=== PATIENT | male | born 1980 | race Caucasian/White ===

== ENCOUNTER → 2019-06-15 11:04 | Outpatient (CLI) | payer OTHER, SELFPAY ==
--- NOTE | 2019-06-15 | DI.RAD.S_ITS ---
PROCEDURE: XR RIBS RT MIN 3V W CXR 1V INDICATIONS: rib pain TECHNIQUE: 2 views of the right ribs were acquired, along with a single view chest. COMPARISON: None. FINDINGS: Surgical changes and devices: None. Bones and chest wall: Linear lucency and cortical irregularity involving the lateral right ninth rib Lungs and pleura: No pleural effusions or pneumothorax. Lungs appear clear. Mediastinum: Mediastinal contours appear normal. Heart size is normal. IMPRESSION: Suspect lateral right ninth rib fracture. No pneumothorax Dictated by: Alvaro Mauricio M.D. on 06/15/2019 at 16:33 Approved by: Alvaro Mauricio M.D. on 06/15/2019 at 16:37
== END ==
PROVIDERS: PCP Family Medicine; Visit Provider Student in an Organized Health Care Education/Training Program
DX: R07.81 Pleurodynia (principal)
CPT/HCPCS: 71101

== ENCOUNTER → 2019-08-10 13:10 | Outpatient (ROUT) | payer OTHER, SELFPAY ==
[2019-08-10 13:28] LABS: Semen Sperm Prescence Post-Vas Absent (ABSENT)
== END ==
PROVIDERS: PCP Family Medicine; Visit Provider Student in an Organized Health Care Education/Training Program
DX: Z30.2 Encounter for sterilization (principal)
CPT/HCPCS: 89321

== ENCOUNTER → 2019-12-14 12:23 | Outpatient (CLI) | payer OTHER, SELFPAY ==
--- NOTE | 2019-12-14 | DI.MRI.S_ITS ---
PROCEDURE: MR SHOULDER LT WO CON INDICATIONS: Unspecified disorder of synovium and tendon, left TECHNIQUE: Noncontrast oblique coronal T2 fast spin echo with fat saturation, oblique sagittal T1 spin echo and T2 fast spin echo with fat saturation, axial T1 spin echo and T2 fast spin echo with fat saturation through the shoulder. COMPARISON: None. FINDINGS: Image quality: Excellent. Rotator cuff: Supraspinatus and infraspinatus mild tendinopathy. There is low-grade bursal surface fraying of the supraspinatus and infraspinatus tendons. Teres minor and subscapularis tendons appear intact. No atrophy of the rotator cuff muscles Bones and bursae: No bone marrow contusions or fractures. Minimal acromioclavicular joint degeneration. Acromion demonstrates conventional anatomy, without an os acromiale. Mild-moderate subacromial-subdeltoid bursitis. Capsule and soft tissues: Labrum: No discrete tear identified. Incidental sub-labral foramen. Long head of the biceps tendon intact. The rotator interval appears normal, without fibrosis. Coracohumeral ligament intact. IMPRESSION: Supraspinatus and infraspinatus tendinopathy with low-grade bursal surface fraying. Mild-moderate subacromial-subdeltoid bursitis Dictated by: Alvaro Mauricio M.D. on 12/14/2019 at 13:43 Approved by: Alvaro Mauricio M.D. on 12/14/2019 at 13:49
== END ==
PROVIDERS: PCP Family Medicine; Referring Provider Orthopaedic Surgery; Visit Provider Orthopaedic Surgery
DX: M67.912 Unspecified disorder of synovium and tendon, left shoulder (principal); M75.52 Bursitis of left shoulder
CPT/HCPCS: 73221

== ENCOUNTER → 2020-10-30 13:06 | Outpatient (CLI) | payer OTHER, SELFPAY ==
--- NOTE | 2020-10-30 13:08 | DI.CT.S_ITS ---
PROCEDURE: CT CHEST WO CON INDICATIONS: RIGHT RIB FRACTURE TECHNIQUE: Noncontrast 5 mm thick sections acquired from the pulmonary apices to the posterior costophrenic angles. 1 mm lung window, 5 mm thick coronal and sagittal and 7 mm axial MIP reformats were then acquired. For radiation dose reduction, the following was used: automated exposure control, adjustment of mA and/or kV according to patient size. COMPARISON: [facility], CR, XR RIBS RT MIN 3V W CXR 1V, 06/15/2019, 11:13. FINDINGS: Image quality: Excellent. Lungs and pleura: No acute air space opacities. No pleural effusions or pneumothorax. Central and peripheral airways are patent and normal in caliber. Mediastinum: Heart size is normal. No pericardial effusion. No mediastinal adenopathy by size criteria. Thoracic aorta and central pulmonary arteries are normal in size. Esophagus is normal in caliber. No hiatal hernia. Bones and chest wall: Area of sclerosis with subtle internal linear lucency is noted in right lateral 10th rib best seen on sagittal series image 15 suggestive of a subacute nondisplaced fracture in this area. No other rib fracture or suspicious bony lesion is seen. No vertebral body compression fractures. No axillary or supraclavicular adenopathy by size criteria. Thyroid gland is within normal limits. Abdomen: Visualized upper abdominal solid organs and bowel loops appear normal in the absence of contrast. IMPRESSION: 1. Suggestion of a subacute appearing nondisplaced right lateral 10th rib fracture. No other rib fracture or suspicious bony lesion is seen. 2. Lungs are clear. 3. No mediastinal or hilar lymphadenopathy. Dictated by: Donavon Mitchell M.D. on 10/30/2020 at 14:38 Approved by: Donavon Mitchell M.D. on 10/30/2020 at 14:56
== END ==
PROVIDERS: PCP Family Medicine; Referring Provider Family Medicine; Visit Provider Family Medicine
DX: S22.31XG Fracture of one rib, right side, subsequent encounter for fracture with delayed healing (principal)
CPT/HCPCS: 71250

== ENCOUNTER → 2023-01-01 18:12 | Outpatient (CLI) | payer OTHER, SELFPAY ==
--- NOTE | 2023-01-01 | DI.RAD.S_ITS ---
PROCEDURE: XR CHEST 2V INDICATIONS: CHEST PA L TECHNIQUE: 2 views of the chest were acquired. COMPARISON: None. FINDINGS: Surgical changes and devices: None. Lungs and pleura: Lungs are clear. No pleural effusions or pneumothorax. Mediastinum: Mediastinal contours are normal. Heart size is normal. Bones and chest wall: No suspicious bony abnormalities. Soft tissues appear unremarkable. IMPRESSION: No evidence for active disease in the chest. Dictated by: Vince Castro M.D. on 01/02/2023 at 8:21 Approved by: Vince Castro M.D. on 01/02/2023 at 8:22
== END ==
PROVIDERS: PCP Family Medicine; Referring Provider Family Medicine; Visit Provider Family Medicine
DX: R06.02 Shortness of breath (principal)
CPT/HCPCS: 71046

== ENCOUNTER → 2023-01-13 12:27 | Outpatient (CLI) | payer OTHER, SELFPAY ==
--- NOTE | 2023-01-13 | DI.US.S_ITS ---
PROCEDURE: US ABDOMEN LIMITED INDICATIONS: Splenomegaly, not elsewhere classified TECHNIQUE: Real-time focused scanning was performed of the abdomen, with image documentation. COMPARISON: None. FINDINGS: The spleen measures up to 17.1 cm in length, with a calculated volume of 461 cc. No focal splenic lesion identified sonographically. IMPRESSION: Nonspecific splenomegaly. Dictated by: Ash Mcneil M.D. on 01/13/2023 at 13:37 Approved by: Ash Mcneil M.D. on 01/13/2023 at 13:39
== END ==
PROVIDERS: PCP Family Medicine; Referring Provider Family Medicine; Visit Provider Family Medicine
DX: R16.1 Splenomegaly, not elsewhere classified (principal)
CPT/HCPCS: 76705

== ENCOUNTER → 2023-04-15 08:50 | Outpatient (CLI) | payer OTHER, SELFPAY ==
--- NOTE | 2023-04-15 | DI.US.S_ITS ---
PROCEDURE: US ABDOMEN COMPLETE INDICATIONS: Splenomegaly, not elsewhere classified TECHNIQUE: Real-time scanning was performed of the left upper quadrant, with image documentation. COMPARISON: [facility], , US ABDOMEN LIMITED, 01/13/2023, 12:40. FINDINGS: Spleen: Spleen is borderline enlarged and measures 12.2 x 5 cm in size Miscellaneous: No free abdominal fluid. IMPRESSION: Borderline splenomegaly now measures 12.2 x 5 cm in size compared to 17.1 cm in size on previous study. Dictated by: Donavon Mitchell M.D. on 04/15/2023 at 10:59 Approved by: Donavon Mitchell M.D. on 04/15/2023 at 11:00
== END ==
PROVIDERS: PCP Family Medicine; Referring Provider Family Medicine; Visit Provider Family Medicine
DX: B27.90 Infectious mononucleosis, unspecified without complication (principal); R16.1 Splenomegaly, not elsewhere classified
CPT/HCPCS: 76700

== ENCOUNTER → 2023-06-21 11:48 | Outpatient (CLI) | payer OTHER, SELFPAY ==
--- NOTE | 2023-06-21 11:50 | DI.RAD.S_ITS ---
PROCEDURE: XR LUMBAR SPINE MIN 4V INDICATIONS: Lumbar pain TECHNIQUE: 5 views of the lumbar spine were acquired, including bilateral oblique views. COMPARISON: None. FINDINGS: Bones: 5 nonrib-bearing vertebrae are present. There is normal bony alignment. No vertebral body compression fractures. No suspicious bony lesions. The disc heights are well preserved. Soft tissues: Overlying bowel gas pattern is normal. No suspicious soft tissue calcifications. Oblique images: No pars defects. IMPRESSION: Plain film study within normal limits. If it would be helpful for clinical management decision making, please consider a dedicated, scheduled lumbar spine MRI for further evaluation (assuming that there is no contraindication). Dictated by: Geraldo Sandy M.D. on 06/21/2023 at 15:13 Approved by: Geraldo Sandy M.D. on 06/21/2023 at 15:13
== END ==
PROVIDERS: PCP Family Medicine; Referring Provider Nurse Practitioner Family; Visit Provider Nurse Practitioner Family
DX: M54.50 Low back pain, unspecified (principal)
CPT/HCPCS: 72110

== ENCOUNTER → 2023-08-06 11:42 | Outpatient (CLI) | payer OTHER, SELFPAY ==
--- NOTE | 2023-08-06 11:58 | DI.MRI.S_ITS ---
PROCEDURE: MR LUMBAR SPINE WO CON INDICATIONS: Radiculopathy, lumbar region TECHNIQUE: Noncontrast sagittal T1 spin echo and T2 fast echo, sagittal STIR, and T2 fast spin echo through the lumbar spine. In cases with scoliosis, additional coronal T2 fast spin echo may be performed. COMPARISON: None. FINDINGS: Image quality: Excellent. Alignment and Curvature: There is normal bony alignment. Bone Marrow: Marrow is of normal overall signal. No acute vertebral body compression fractures. Spinal Cord: Conus medullaris terminates at the L1 level. Visualized cord demonstrates normal signal and size. Paraspinous Soft Tissues: Prominent left para-aortic lymph nodes are incompletely evaluated. T12-L1: Normal appearance. L1-L2: Normal appearance. L2-L3: Disc desiccation. Small posterior disc bulge. Small superimposed superiorly directed disc extrusion. No central canal or neural foraminal stenosis. L3-L4: Mild facet arthropathy. No central canal or neural foraminal stenosis. L4-L5: Facet arthropathy. No central canal or neural foraminal stenosis. L5-S1: Facet arthropathy. No central canal or neural foraminal stenosis. IMPRESSION: 1. Mild degenerative changes of the lumbar spine as described above. No significant central canal or neural foraminal stenosis. 2. Prominent left para-aortic lymph nodes are incompletely evaluated. Recommend CT abdomen pelvis for further evaluation. Dictated by: Rupert Merida M.D. on 08/06/2023 at 12:54 Approved by: Rupert Merida M.D. on 08/06/2023 at 12:58
== END ==
PROVIDERS: PCP Family Medicine; Referring Provider Family Medicine; Visit Provider Family Medicine
DX: M47.26 Other spondylosis with radiculopathy, lumbar region; M47.27 Other spondylosis with radiculopathy, lumbosacral region
CPT/HCPCS: 72148

== ENCOUNTER → 2023-09-17 07:33 | Outpatient (CLI) | payer OTHER, SELFPAY ==
--- NOTE | 2023-09-17 | DI.CT.S_ITS ---
PROCEDURE: CT ABDOMEN PELVIS W CON INDICATIONS: Localized enlarged lymph nodes TECHNIQUE: After the administration of oral and IV contrast, axial sections were acquired from the lung bases to the pubic symphysis. Coronal and sagittal reformats were performed. For radiation dose reduction, the following was used: automated exposure control, adjustment of mA and/or kV according to patient size. COMPARISON: [facility], MR, MR LUMBAR SPINE WO CON, 08/06/2023, 11:53. FINDINGS: Image quality: Excellent. Lung bases: Unremarkable. Heart: No significant findings. ABDOMEN: Liver: A small hypodensity in the left lobe of the liver which has the appearance of a benign cyst. Gallbladder: No radiopaque gallstones or wall thickening. Biliary ducts: No biliary dilation. Pancreas: No ductal dilation. Spleen: Size is within normal limits. Adrenal Glands: No adrenal nodules. Kidneys and Ureters: No hydronephrosis. No solid mass. No complex renal cystic lesion which requires follow up. Stomach and Bowel: Normal colonic caliber, without significant wall thickening. Normal appendix. Peritoneum: No abnormal intraperitoneal fluid. No free air. Ventral Wall: Tiny fat containing umbilical hernia. Abdominal Nodes: Retroperitoneal lymph nodes are felt to be within normal limits. There is a preserved fatty hilum and no pathologically enlarged lymph nodes. Vessels: Aorta and inferior vena cava are normal in size. PELVIS: Pelvic Organs: Unremarkable. Bladder: Unremarkable. Pelvic Nodes: No enlarged lymph nodes. Miscellaneous: No inguinal hernias are seen. Vasectomy clips. Bones: No suspicious osseous lesion. IMPRESSION: 1. Retroperitoneal lymph nodes are within normal limits. 2. No acute abnormality. No free fluid. Dictated by: Victorino Huynh M.D. on 09/17/2023 at 9:03 Approved by: Victorino Huynh M.D. on 09/17/2023 at 9:14
== END ==
PROVIDERS: PCP Family Medicine; Referring Provider Family Medicine; Visit Provider Family Medicine
DX: R59.0 Localized enlarged lymph nodes (principal)
CPT/HCPCS: 74177; Q9967

== ENCOUNTER 2023-10-30 13:10 | Day surgery (SDC) | payer OTHER, SELFPAY ==
--- NOTE | 2023-10-30 | PATH_ITS ---
[facility] Accession Number: [id number] No. of containers..02 Tissue . 01 Material submitted: . PART A: cecum - CECAL POLYP PART B: sigmoid colon - SIGMOID POLYP X 2 . 01 Diagnosis: A. Cecal Polyp, Biopsy: Sessile serrated adenoma. . B. Sigmoid Colon Polyps, Biopsy: Tubular adenoma. Hyperplastic polyp. MRV 11/03/2023 1454 Local . 01 Electronically signed: . Bhakti Biggs MD, Pathologist NPI- [id number] . 01 Gross description: . Part A: CECAL POLYP: Received in formalin are 2 fragment(s) of palm, soft tissue measuring 0.3 x 0.3 x 0.3 cm to 1.2 x 0.6 x 0.4 cm submitted entirely in 1 cassette(s) Part B: SIGMOID POLYP X 2: Received in formalin are 2 fragment(s) of palm, soft tissue measuring 0.1 x 0.1 x 0.1 cm to 0.5 x 0.4 x 0.4 cm submitted entirely in 1 cassette(s) /BETY 10/31/2023 2006 Local . 01 Pathologist provided ICD-10: D12.0, D12.5 . 01 CPT . 386358, [id number] Specimen Comment: A courtesy copy of this report has been sent to [phone] Performed at: 01 [facility] [address] [place] [address] Suite [facility], [place], [place] [id number] MD Tonio Aguirre MD Phone: [phone]
[2023-10-30 14:31] VITALS: BP 108/83; PULSE 85; RESP 16; TEMP 36.3; O2SAT 98
--- NOTE | 2023-10-30 14:46 | PM.HP.1 ---
History of Present Illness History of Present Illness Date Patient Seen: 10/30/23 Time Patient Seen: 14:46 Chief complaint: SDC Narrative: Vince is a 43-year-old man who is here for a screening colonoscopy. He has never had 1 before. No family history of colon cancer. No other major health problems. [facility] Social History Smoking Status: Never smoker alcohol intake: current Meds Home Medications and Allergies Home Medications Medication Instructions Recorded Confirmed Type cyclobenzaprine 5 mg tablet 5 mg PO TID PRN muscle spasm #20 06/21/23 06/21/23 Rx tabs sodium,potassium,mag sulfates 17.5 See Rx Instructions PO .COMPLEX 09/04/23 Rx gram-3.13 gram-1.6 gram oral soln #354 mL (Suprep Bowel Prep Kit) Allergies Allergy/AdvReac Type Severity Reaction Status Date / Time No Known Drug Allergies Allergy Unverified 06/21/23 11:20 Exam Vital Signs (past 8 hours): - 10/30/23 14:31 Temperature 97.4 F L Pulse Rate 85 Respiratory Rate 16 Blood Pressure 108/83 Pulse Oximetry 98 Oxygen Delivery Method Room Air Oxygen Delivery Method Room Air Const General: healthy appearing Assessment & Plan Assessment and plan (1) Colon cancer screening: Status: Acute Plan We reviewed the risks and benefits of colonoscopy for colon cancer screening and he would like to proceed.
[2023-10-30] MEDS: LACTATED RINGERS 1,000 ML 84 ML IV (14:47)
[2023-10-30 15:25] VITALS: BP 85/58; PULSE 77; RESP 11; TEMP 36.4; O2SAT 95
[2023-10-30 15:29] VITALS: BP 93/62; PULSE 76; RESP 11; O2SAT 98
--- NOTE | 2023-10-30 15:30 | PM.OP.COLON ---
Operative Date/Time/Diagnoses Date of procedure: 10/30/23 Time of procedure: 15:30 Pre-op diagnosis: Colon cancer screening Post-op diagnosis: same Procedure & Clinicians Study performed: Colonoscopy Same procedure as scheduled: Yes Surgeon: Jose Carlos Haines Procedure Notes Procedure in detail: Surgeon: Jose Carlos Haines MD Anesthesia: Tevin Dao MD Procedure: The patient was brought to the endoscopy suite, placed in left lateral decubitus position. The patient was connected to monitoring devices. A time-out was performed. Sedation was administered. Once the patient was adequately sedated, a digital rectal exam was performed and was normal. The scope was then inserted and advanced to the cecum where the appendiceal orifice was identified and photographed. The scope was then slowly withdrawn over greater than 6 minutes. The mucosa was thoroughly inspected. There was an 8 mm polyp in the cecum near the appendiceal orifice and removed with a cold snare. There were 2 diminutive polyps in the distal sigmoid removed with cold snare and sent together as sigmoid polyps. The scope was retroflexed in the rectum. Internal hemorrhoids were noted. The scope was straightened and removed. The patient was awakened and brought to recovery. Scope withdrawal time: 12 minutes Sedation time: 18 minutes EBL: 2 mL Findings: 8 mm polyp in the cecum and 2 diminutive polyps in the distal sigmoid colon Post-procedure Disposition: PACU
[2023-10-30 15:35] VITALS: BP 94/62; PULSE 81; RESP 11; O2SAT 98
[2023-10-30 15:38] VITALS: BP 98/58; PULSE 81; RESP 11; O2SAT 97
[2023-10-30 15:40] VITALS: BP 106/72; PULSE 83; RESP 11; O2SAT 98
== END 2023-10-30 16:00 | disposition home or self-care (01) ==
PROVIDERS: PCP Family Medicine; Referring Provider Surgery; Visit Provider Surgery
PROC: 0DJD8ZZ Inspection of Lower Intestinal Tract, Via Natural or Artificial Opening Endoscopic (ICD-10-PCS; CPT 45378; principal; 2023-10-30 14:15)
DX: Z12.11 Encounter for screening for malignant neoplasm of colon (principal); K64.8 Other hemorrhoids; D12.0 Benign neoplasm of cecum; D12.5 Benign neoplasm of sigmoid colon
CPT/HCPCS: 45385; J2704

== ENCOUNTER → 2023-12-10 10:50 | Outpatient (CLI) | payer OTHER, SELFPAY ==
--- NOTE | 2023-12-10 10:51 | DI.RAD.S_ITS ---
PROCEDURE: XR SHOULDER RT MIN 2V INDICATIONS: Fall while skiing, limited abduction extension 2/2 pain TECHNIQUE: 3 views of the shoulder were acquired. COMPARISON: None. FINDINGS: Bones: No fractures or dislocations. No suspicious bony lesions. Visualized ribs appear intact. Soft tissues: No suspicious soft tissue calcifications. IMPRESSION: No acute osseous abnormality. If pain persists with conservative management, consider repeat x-ray in 10-14 days or cross-sectional imaging. Dictated by: Rupert Merida M.D. on 12/10/2023 at 12:52 Approved by: Rupert Merida M.D. on 12/10/2023 at 12:52
== END ==
PROVIDERS: PCP Family Medicine; Referring Provider Family Medicine; Visit Provider Family Medicine
DX: M25.511 Pain in right shoulder (principal)
CPT/HCPCS: 73030

== ENCOUNTER → 2023-12-23 15:14 | Outpatient (CLI) | payer OTHER, SELFPAY ==
--- NOTE | 2023-12-23 15:15 | DI.MRI.S_ITS ---
PROCEDURE: MR SHOULDER RT WO CON INDICATIONS: ROTATOR CUFF SYNDROME RT SHOULDER TECHNIQUE: Noncontrast oblique coronal T2 fast spin echo with fat saturation, oblique sagittal T1 spin echo and T2 fast spin echo with fat saturation, axial T1 spin echo and T2 fast spin echo with fat saturation through the shoulder. COMPARISON: [facility], CR, XR SHOULDER RT MIN 2V, 12/10/2023, 10:58. [facility], MR, MR SHOULDER LT WO CON, 12/14/2019, 12:29. FINDINGS: Image quality: Excellent. Rotator cuff: Low-grade articular and bursal surface partial thickness tear at its insertion on the humeral head is seen extending to musculotendinous junction. Distal infraspinatus and subscapularis tendinosis is seen. No full-thickness rotator cuff tendon rupture. Sagittal images demonstrate no significant rotator cuff muscle atrophy. Bones and bursae: There is extensive marrow edema involving greater tuberosity of humeral head with cortical irregularity and linear hypointense signal within the area of edema consistent with a nondisplaced and comminuted lateral humeral head fracture near rotator cuff tendon insertion. No other area of abnormal marrow signal. No significant acromioclavicular joint osteoarthritis. Small amount of subacromial subdeltoid bursal fluid is seen, no gross loose bodies. Capsule and soft tissues: Mild fraying of superior anterior labrum with T2 hyperintense signal at 12 to 1 o'clock position is seen suggestive of subtle superior anterior labral tear. The long head of the biceps tendon is mildly thickened at the level of greater tuberosity. The rotator interval appears normal, without fibrosis. The coracohumeral ligament is normal in thickness. IMPRESSION: 1. Comminuted nondisplaced fracture involving lateral portion of humeral head near rotator cuff tendon insertion with extensive marrow edema. No other fracture or dislocation. Small amount of joint effusion and subacromial subdeltoid bursal fluid, no gross loose bodies. 2. Low-grade articular and bursal surface partial thickness tear involving distal supraspinatus extending to musculotendinous junction. Distal infraspinatus and subscapularis tendinosis. No full-thickness rotator cuff tendon rupture. 3. Suggestion of subtle superior anterior labral tear at 12 to 1 o'clock position. 4. Low-grade intrasubstance partial-thickness tear involving proximal long head of biceps. Dictated by: Donavon Mitchell M.D. on 12/23/2023 at 18:16 Approved by: Donavon Mtichell M.D. on 12/23/2023 at 18:20
== END ==
PROVIDERS: PCP Family Medicine; Referring Provider Orthopaedic Surgery; Visit Provider Orthopaedic Surgery
DX: S42.354A Nondisplaced comminuted fracture of shaft of humerus, right arm, initial encounter for closed fracture (principal); M75.111 Incomplete rotator cuff tear or rupture of right shoulder, not specified as traumatic; S46.111A Strain of muscle, fascia and tendon of long head of biceps, right arm, initial encounter; M75.01 Adhesive capsulitis of right shoulder
CPT/HCPCS: 73221

== ENCOUNTER → 2024-06-24 07:06 | Outpatient (CLI) | payer OTHER, SELFPAY ==
[2024-06-24 08:14] LABS: Add Manual Diff / Slide Review NO; Basophils Absolute Auto 0 /uL (0-100); Basophils Percent Auto 0.5 % (0-2); Eosinophils Absolute Auto 100 /uL (0-450); Hematocrit 45.6 % (41-53); Hemoglobin 15.5 g/dL (13.5-17.5); Lymphocytes Absolute Auto 1800 /uL (1100-4500); Mean Corpuscular HGB Conc 33.9 % (30-36); Mean Corpuscular Hemoglobin 30.3 PG (26-34); Mean Corpuscular Volume 89.3 fL (80-100); Monocytes Absolute Auto 500 /uL (0-900); Monocytes Percent Auto 8.6 % (3-14); Neutrophils Absolute Auto 2900 /uL (1500-7000); Neutrophils Percent Auto 54.9 % (50-75); Platelet Count 216 X10^3/uL (150-400); Red Blood Cell Count 5.11 X10^6/uL (4.5-5.9); Red Cell Distribution Width 13.5 % (11.6-14.8); White Blood Cell Count 5.3 X10^3/uL (4.5-11.0)
[2024-06-24 08:35] LABS: Alanine Aminotransferase 15 IU/L (<50); Albumin Globulin Ratio 1.5 (1.0-2.8); Alkaline Phosphatase 52 U/L (38-126); Aspartate Aminotransferase 20 IU/L (17-59); BUN Creatinine Ratio 16.8 (6-22); Bilirubin Total 1.1 mg/dL (0.2-1.3); Blood Urea Nitrogen 16 mg/dL (9-20); Calcium 9.1 mg/dL (8.4-10.2); Carbon Dioxide 27 mmol/L (22-32); Chloride 104 mmol/L (98-107); Cholesterol 158 mg/dL (140-199); Estimated Glomerular Filt Rate > 60 mL/min (>60); Globulin 2.7 g/dL (1.7-4.1); Glucose 92 mg/dL (70-100); HDL Cholesterol 48 mg/dL (40-60); HEMOLYSIS < 15 (0-50); LDL Cholesterol Calculated 98 mg/dL (<100); Potassium 4.3 mmol/L (3.4-5.1); Sodium 137 mmol/L (137-145); Total Protein 6.7 g/dL (6.3-8.2); Triglycerides 61 mg/dL (35-150)
[2024-06-24 08:37] LABS: Hemoglobin A1C% w Est Avg Glu 5.1 % (4.0-6.0)
== END ==
PROVIDERS: PCP Family Medicine; Referring Provider Family Medicine; Visit Provider Family Medicine
DX: Z13.9 Encounter for screening, unspecified (principal); Z13.1 Encounter for screening for diabetes mellitus; Z13.228 Encounter for screening for other metabolic disorders; Z13.220 Encounter for screening for lipoid disorders
CPT/HCPCS: 36415; 80053; 80061; 83036; 85025

== ENCOUNTER → 2024-09-28 16:29 | Outpatient (CLI) | payer OTHER, SELFPAY ==
--- NOTE | 2024-09-28 16:31 | DI.US.S_ITS ---
PROCEDURE: US SCROTUM INDICATIONS: TESTICULAR PAIN TECHNIQUE: Real-time scanning was performed of the scrotum and testicles, with image documentation. Color and pulse Doppler interrogation was performed of both testicles. COMPARISON: None. FINDINGS: Right: Testicle is normal in size at 4.6 x 2.3 x 3.6 cm, and homogenous in echotexture. Epididymis is normal in overall size and minimally heterogeneous. No hydrocele or varicoceles. Overlying scrotal skin is normal in thickness. Left: Testicle is normal in size at 4.5 x 2.4 x 3.3 cm, and homogeneous in echotexture. Epididymal head cyst measures up to 7 mm. Mildly heterogeneous appearance of the epididymis with slightly increased vascularity. No hydrocele or varicoceles. Overlying scrotal skin is normal in thickness. Doppler: Color and pulse Doppler demonstrate normal and symmetric arterial flow in both testicles. IMPRESSION: 1. No signs of testicular torsion. 2. Mild heterogeneity of the left epididymis in slightly increased vascularity could indicate mild epididymitis. Approved by: Ash Ortiz M.D. on 09/28/2024 at 19:01
== END ==
PROVIDERS: PCP Family Medicine; Referring Provider Urology; Visit Provider Urology
DX: N50.811 Right testicular pain (principal)
CPT/HCPCS: 76870; 93975